=== PATIENT | female | born 1980 | race Caucasian/White ===

== ENCOUNTER 2017-03-03 18:39 | Outpatient (CLI) | payer BC, OTHER ==
--- NOTE | 2017-03-03 19:55 | RADRPT ---
PROCEDURE: US biophysical profile. CLINICAL INDICATION: Labor. well-being. TECHNIQUE: Multiple sonographic images of the uterus were obtained. The images were revi ewed on a PACS workstation. COMPARISON: No prior studies are available for comparison. FINDINGS: There is a single live intrauterine gestation. heart rate is 129 beats per minute. The position is cephalic. The placenta is fundal, grade 2. The MITUL is 19.2 cm. Breathing Movement: 2 Gross Body Movement: 2 Tone: 2 Qualitative Amniotic Fluid Volume: 2 TOTAL: 8 IMPRESSION: 1. Single viable intrauterine gestation. 2. Biophysical profile = 02/25. 3. MITUL = 19.20 cm. RPTAT: QQ .Vinnie Molina MD, MD Date Time Electronically viewed and signed by .Vinnie Molina MD, MD on 03/03/2017 19:55 .N/
--- NOTE | 2017-03-04 06:01 | PN ---
Triage Information Date/Time Reason for visit: Weeks of Gestation 34 3/7 /Para 2 Additional information 36 Year-old with SIUP at 34 3/7 presents to check the baby as her friend told her if woman has any stress can cause . She states good movement. She denies nausea, vomiting, shortness of breath, chest pain, and abdominal pain between contractions, headache, visual changes, vaginal bleeding or LOF. Objective Heart Rate: 140's Exam General: Patient appears well, alert and oriented, NAD, appropriate mood and affect ABD: gravid, soft, non-tender. Back: No CVA tenderness (B/L) LE: No clubbing, cyanosis, edema, thigh or calf tenderness bilaterally FHT: 140 bpm , moderate variability with acceleration, no deceleration-category I Contractions: Occasional Assessment/Plan 36 Year-old with SIUP at 34 3/7 - FHR: No sign of metabolic acidosis- Category I - Continuous EFM, toco - Reactive NST. BPP: 10/10 - Symptoms and sign of labor, preeclampsia, kick count discussed with patient, she voiced understanding. All of her questions answered. - Patient was discharged home in stable condition with the appropriate discharge instructions provided. I would like patient to have close follow-up with her primary physician or outpatient clinic in 1-2 days or return to the ER for worsening symptoms or any other urgent concerns. OLVIN RAND Mar 04, 2017 06:01
== END 2017-03-03 21:45 | disposition home or self-care (01) ==
LOC: L-D 18:39 → OBT 18:39
DX: O26.893 Other specified pregnancy related conditions, third trimester (principal); Z3A.34 34 weeks gestation of pregnancy; R10.9 Unspecified abdominal pain
CPT/HCPCS: 76818; Z7500; G0463